=== PATIENT | male | born 1990 | race Caucasian/White ===

== ENCOUNTER → 2016-10-30 | Outpatient (CLI) | payer BC ==
[~2016-10-30] MED LIST: PERCOCET 325 MG1 TA2 PO; ULTRAM 50MG TAB50 MG PO; ZOFRAN8 MG PO
== END ==
LOC: COL.RAD 10:00
DX: C62.12 Malignant neoplasm of descended left testis (principal)
CPT/HCPCS: Q9967

== ENCOUNTER → 2016-11-22 | Outpatient (CLI) | payer BC | LOC: MC.RAD 13:00 | DX: N63 Unspecified lump in breast (principal); D24.2 Benign neoplasm of left breast; D24.1 Benign neoplasm of right breast; C62.92 Malignant neoplasm of left testis, unspecified whether descended or undescended ==